=== PATIENT | male | born 1970 | race American Indian/Alaskan Native ===

== ENCOUNTER 2023-05-01 01:32 | Emergency (ER) | payer OTHER ==
[~2023-05-01] VITALS: Ht 170.2 cm; Wt 90.0 kg
[~2023-05-01 01:32] MED LIST: ACETAMINOPHEN325 M1 PO; CEPHALEXIN500 MG PO; CIPRO500 MG PO; CLARITIN10 M2 PO; COUMADIN5 MG PO; ENOXAPARIN60 MG/0.6 SQ; IBUPROFEN400 MG PO; NICOTINE PATCH1 EAC1 TD; NORCO 5-325 TA1 EACH PO; PSEUDOEPHEDRINE60 MG PO; ROBITUSSIN100 MG/51 PO
[2023-05-01 01:51] LABS: BASOPHILS 0.8 % (0-2); EOSINOPHILS 3.8 % (0-6); HEMATOCRIT 45.1 % (35.0-50.0); HEMOGLOBIN 15.1 g/dL (12.0-18.0); LYMPHOCYTES 20.1 % (24-44); MCH 30.5 (27-36); MCHC 33.5 g/dl (30-36); MONOCYTES 5.7 % (0-12); NEUTROPHILS 69.6 % (39-80); PLATELET COUNT 412 K/uL (140-440); RBC 4.95 M/ul (4.3-5.7); RDW 13.6 (10.5-15.0)
[2023-05-01 02:03] LABS: ALBUMIN 3.6 g/dL (3.4-5.0); ALBUMIN/GLOBULIN RATIO 0.95 (1.1-2.4); ANION GAP 20.2 (7-21); BILIRUBIN, TOTAL 0.1 ng/dL (0.2-1.0); BUN/CREATININE RATIO 7.79 (6.0-28.6); CALCIUM 8.4 mg/dL (8.5-10.1); CREATININE, SERUM 0.77 mg/dL (0.70-1.30); POTASSIUM 3.2 mmol/L (3.5-5.1); PROTEIN, TOTAL 7.4 g/dL (6.4-8.2)
[2023-05-01 02:24] LABS: ABO O; ANTIBODY SCREEN NEGATIVE; RH POSITIVE
[2023-05-01] MEDS ORDERED: HYDROCODON-ACE1 EA10 PO (03:23)
[2023-05-01] MEDS ORDERED: CLEOCIN HCL300 MG PO (03:23)
[2023-05-01 03:30] LABS: BILIRUBIN, URINE NEGATIVE (negative); BLOOD/HGB, URINE NEGATIVE (Negative); KETONE, URINE NEGATIVE (Negative); LEUK ESTERASE, URINE NEGATIVE (negative); NITRITE, URINE NEGATIVE (negative); PH, URINE 5.5 (5-7)
[2023-05-01 03:35] LABS: AMPHETAMINES, UR NEGATIVE (NEGATIVE); BARBITURATES, UR NEGATIVE (NEGATIVE); BENZODIAZEPINES, UR NEGATIVE (NEGATIVE); BUPRENORPHINE,UR NEGATIVE (NEGATIVE); COCAINE, UR NEGATIVE (NEGATIVE); MARIJUANA (THC), UR NEGATIVE (NEGATIVE); MDMA, UR NEGATIVE (NEGATIVE); METHADONE, UR NEGATIVE (NEGATIVE); METHAMPHETAMINE, UR NEGATIVE (NEGATIVE); OPIATES, UR POSITIVE (NEGATIVE); OXYCODONE, UR NEGATIVE (NEGATIVE); PHENCYCLIDINE, UR NEGATIVE (NEGATIVE); TRICYCLIC ANTIDEPRESSANT, UR NEGATIVE (NEGATIVE)
[2023-05-01 04:10] VITALS: BP 133/93
--- NOTE | 2023-05-01 20:54 | EKG ---
[facility] [address] [facility] [place] [id number] Signed Sinus tachycardia Otherwise normal ECG No previous ECGs available Confirmed by Liliana Morocho MD () on 05/01/2023 8:53:51 PM Electronically Signed By: LILIANA MOROCHO MD 05/01/232053 PATIENT NAME: MEGHAMAGY Amy Electrocardiogram DATE OF : 70 PHYSICIAN: LILIANA MOROCHO MD REPORT #: [id number] REPORT IS CONFIDENTIAL AND NOT TO BE RELEASED WITHOUT AUTHORIZATION
== END 2023-05-01 05:05 | disposition home or self-care (01) ==
LOC: ED 01:32
PROVIDERS: Family Medicine
DX: S02.2XXA Fracture of nasal bones, initial encounter for closed fracture (principal); Y04.8XXA Assault by other bodily force, initial encounter; F17.200 Nicotine dependence, unspecified, uncomplicated; Z88.0 Allergy status to penicillin
CPT/HCPCS: 12013; 36415; 70450; 70486; 71260; 72125; 73560; 74177; 80053; 81003; 85025; 86850; 86900; 86901; 90471; 90715; 93005; 93010; 99285-25; A9270; G0480; J2270; J7121; Q9967

== ENCOUNTER 2023-08-27 16:51 | Emergency (ER) | payer OTHER ==
[~2023-08-27] VITALS: Ht 170.2 cm; Wt 89.4 kg
[~2023-08-27 16:51] MED LIST changes: +CLEOCIN HCL300 MG PO; +HYDROCODON-ACE1 EA10 PO
[2023-08-27 17:36] LABS: BASOPHILS 0.7 % (0-2); EOSINOPHILS 4.1 % (0-6); HEMATOCRIT 47.5 % (35.0-50.0); HEMOGLOBIN 16.4 g/dL (12.0-18.0); MCH 30.9 (27-36); MCHC 34.6 g/dl (30-36); MCV 89.4 fl (81-99); MONOCYTES 7.3 % (0-12); NEUTROPHILS 71.9 % (39-80); PLATELET COUNT 366 K/uL (140-440); RBC 5.31 M/ul (4.3-5.7); RDW 13.9 (10.5-15.0)
[2023-08-27 17:52] LABS: ALBUMIN 3.6 g/dL (3.4-5.0); ALBUMIN/GLOBULIN RATIO 0.97 (1.1-2.4); ANION GAP 14.6 (7-21); BILIRUBIN, TOTAL 0.6 ng/dL (0.2-1.0); BUN/CREATININE RATIO 12.38 (6.0-28.6); CALCIUM 9.2 mg/dL (8.5-10.1); CREATININE, SERUM 1.05 mg/dL (0.70-1.30); POTASSIUM 4.6 mmol/L (3.5-5.1); PROTEIN, TOTAL 7.3 g/dL (6.4-8.2)
[2023-08-27 18:40] LABS: BILIRUBIN, URINE NEGATIVE (negative); BLOOD/HGB, URINE NEGATIVE (Negative); KETONE, URINE NEGATIVE (Negative); LEUK ESTERASE, URINE NEGATIVE (negative); NITRITE, URINE NEGATIVE (negative); PH, URINE 5.5 (5-7)
[2023-08-27] MEDS ORDERED: ONDANSETRON ODT8 MG PO (20:35)
[2023-08-27] MEDS ORDERED: LOMOTIL TABLET1 EACH PO (20:35)
[2023-08-27 20:51] VITALS: BP 123/87
== END 2023-08-27 20:55 | disposition home or self-care (01) ==
LOC: ED 16:51
PROVIDERS: Emergency Medicine
DX: A08.4 Viral intestinal infection, unspecified (principal); F17.200 Nicotine dependence, unspecified, uncomplicated; Z88.0 Allergy status to penicillin
CPT/HCPCS: 36415; 76705; 80053; 81003; 83690; 85025; 96361; 96374; 99284-25; J2405; J7030